=== PATIENT | female | born 1980 | race Caucasian/White ===

== ENCOUNTER 2017-10-11 11:40 | Outpatient (CLI) | payer BC, SELFPAY ==
[2017-10-11 11:55] VITALS: BP 158/98; PULSE 84; RESP 18; TEMP 36.6; O2SAT 97
== END 2017-10-11 12:30 | disposition home or self-care (01) ==
LOC: INF 16:06
PROVIDERS: PCP Family Medicine; Visit Provider Family Medicine
DX: R51 Headache (principal)
CPT/HCPCS: 96372; J2270

== ENCOUNTER → 2017-12-20 08:10 | Outpatient (CLI) | payer OTHER, BC, SELFPAY ==
--- NOTE | 2017-12-20 08:14 | CA_ITS ---
PROCEDURE: 2-D M-mode and color Doppler study INDICATIONS FOR THE TEST: Chest pain X COPD Heart Murmur Tobacco Smoking Palpitations Fatigue Syncope Edema HypertensionXDiabetes Mellitus Rheumatic Fever SOB DOEXObesityXHyperlipidemia Family History HDX Additional History PATIENT INFORMATION HEIGHT: 63 WEIGHT:200 GENDER: Female B/P:154/90 2-D/M-MODE INTERPRETATION: 2-D MEASUREMENTS OBSERVED VALUES IN CMS Right Ventricular Dimension (RVDd) 2.2 Interventricular Septum (Thickness)(IVsd) 1.2 Left Ventricular Internal Dimensions(LVIDd) 4.2 Left Ventricular Posterior Wall (Thickness)(LVPWd) 1.0 Aortic Root 2.8 Aortic Cusp Separation 1.6 Left Atrial Dimensions (LAD) 3.3 2D 1. Left atrium is qualitatively mildly enlarged, left ventricle is normal size, mild concentric left ventricular hypertrophy, visually estimated ejection fraction 55% with no obvious regional wall motion abnormality. 2. The right atrium and right ventricle are normal size and contractility. 3. The aortic valve is minimally thickened and fibrosed. 4. The mitral and tricuspid valve are grossly normal. 5. The pulmonic valve is poorly. 6. No significant pericardial effusion noted. DOPPLER INTERROGATION: Doppler interrogation of the aortic, mitral and tricuspid valvular presence of mild mitral and tricuspid regurgitation, tricuspid and jet velocity insufficient for calculation of the right ventricular systolic pressure, grade 1 diastolic dysfunction seen without tissue Doppler evidence of raised left atrial pressure. CONCLUSION: 1. Mildly enlarged left atrium, normal left ventricular size, mild concentric left ventricular hypertrophy, visually estimated ejection fraction 55% with no obvious regional wall motion abnormality, grade 1 diastolic dysfunction seen without tissue Doppler evidence of raised left atrial pressure. 2. Mild mitral and tricuspid regurgitation. 3. No significant pericardial effusion noted.
--- NOTE | 2017-12-20 09:20 | XR_ITS ---
XR chest 2V HISTORY: ITS.REASON: LUNG NODULE ORDERING PHYSICIAN: FREDDIE Joseph PATIENT AGE: 37 years COMPARISON: 1220 01/19/2016 FINDINGS: The cardiomediastinal silhouette and pulmonary vascularity are within normal limits. The previously noted right apical nodular density is unchanged and is probably related to hypertrophic changes of the right first rib anteriorly versus an underlying calcified granuloma. There is calcified granuloma in the left upper lobe and left lower lobe. The remaining lungs are clear. No acute bony anomalies. IMPRESSION: Stable appearance of the chest. No change right upper lobe nodular opacity
== END ==
PROVIDERS: Family Provider Physician Assistant; PCP Family Medicine; Visit Provider Physician Assistant
DX: R07.9 Chest pain, unspecified (principal); R91.1 Solitary pulmonary nodule
CPT/HCPCS: 71046; 93017; 93306

== ENCOUNTER → 2017-12-23 11:31 | Outpatient (CLI) | payer OTHER, BC, SELFPAY | PROVIDERS: Family Provider Physician Assistant; PCP Family Medicine; Visit Provider Physician Assistant | DX: E03.9 Hypothyroidism, unspecified (principal); R42 Dizziness and giddiness; R07.89 Other chest pain ==

== ENCOUNTER → 2017-12-25 07:00 | Outpatient (CLI) | payer OTHER, BC, SELFPAY ==
[2017-12-26 16:14] LABS: Total Protein 24 Hour,Urine 156 mg/24 hr (40-90); Total Protein,Urine Random < 6.0 mg/dL (0.0-11.9); Total Volume,Urine 2600 mL (600-1600)
== END ==
PROVIDERS: Internal Medicine; Visit Provider Physician Assistant
DX: I11.9 Hypertensive heart disease without heart failure (principal); R07.9 Chest pain, unspecified; R94.31 Abnormal electrocardiogram [ECG] [EKG]
CPT/HCPCS: 84155

== ENCOUNTER → 2017-12-26 08:15 | Outpatient (CLI) | payer OTHER, BC, SELFPAY ==
[2017-12-30 20:10] LABS: Metanephrine, Ur 34 ug/L (Undefined); Normetanephrine, Ur 113 ug/L (Undefined)
[2017-12-31 15:14] LABS: Metanephrine, U,24hr 83 ug/24 hr (45-290); Normetanephr.,U,24h 277 ug/24 hr (82-500)
[2018-01-01 14:16] LABS: VMA, Urine 1.5 mg/L (Undefined)
[2018-01-01 18:26] LABS: Dopamine, Urine 81 ug/L (Undefined); Epinephrine, U, 24hr 5 ug/24 hr (0-20); Epinephrine, Urine 2 ug/L (Undefined); Norepinephrine, Ur 15 ug/L (Undefined); Norepinephrine,U,24h 37 ug/24 hr (0-135)
[2018-01-02 06:30] LABS: Dopamine, Ur, 24hr 198 ug/24 hr (0-510); VMA, Urine, 24hr 3.7 mg/24 hr (0.0-7.5)
== END ==
PROVIDERS: Internal Medicine; Visit Provider Physician Assistant
DX: R07.9 Chest pain, unspecified (principal); R94.31 Abnormal electrocardiogram [ECG] [EKG]; I11.9 Hypertensive heart disease without heart failure
CPT/HCPCS: 83835; 84585

== ENCOUNTER → 2018-01-02 08:06 | Outpatient (CLI) | payer OTHER, BC, SELFPAY ==
--- NOTE | 2018-01-02 08:09 | AS_ITS ---
Renal Arterial Duplex Indications: HTN IMPRESSIONS Normal bilateral renal artery evaluation. Complete renal arterial duplex. Duplex scan and Doppler flow study including spectral analysis, color and wheat scale imaging. Height: Height: 160cm. Height: 63in. Weight: Weight: 90.7kg. Weight: 199.6lb. Body mass index: BMI: 35.4kg/m^2. Body surface area: BSA: 2.05m^2. Location: Vascular laboratory. Patient status: Outpatient. Tables: Arterial flow: + +--------+--------+ Location V sys V ed + +--------+--------+ Right renal - proximal 124cm/s 47.9cm/s + +--------+--------+ Right renal - mid 121cm/s 47.9cm/s + +--------+--------+ Right renal - distal 85.2cm/s 31.2cm/s + +--------+--------+ Left renal - proximal 119cm/s 41.3cm/s + +--------+--------+ Left renal - mid 98.5cm/s 32.8cm/s + +--------+--------+ Left renal - distal 118cm/s 48.9cm/s + +--------+--------+ Renal anatomy: + +------+------+ Left Right + +------+------+ Long axis 10.7cm 10.2cm + +------+------+ Short axis 5.2cm 5.1cm + +------+------+ Cortical thickness 1.1cm 1.4cm + +------+------+ Velocity ratios: + +-----+ V sys + +-----+ Right renal/aortic 1.5 + +-----+ Left renal/aortic 1.5 + +-----+ (Report amended ) Electronically signed by: Lex Okeefe [id number]
== END ==
PROVIDERS: Family Provider Physician Assistant; PCP Family Medicine; Visit Provider Internal Medicine
DX: I10 Essential (primary) hypertension (principal)
CPT/HCPCS: 93976

== ENCOUNTER → 2018-01-02 08:59 | Outpatient (CLI) | payer OTHER, BC, SELFPAY ==
[2018-01-02 11:36] LABS: Anion Gap 12.1 mEq/L (5-15); Blood Urea Nitrogen 13 mg/dL (7-18); Carbon Dioxide 31 mmol/L (21.0-32.0); Chloride 101 mmol/L (98-107); Creatinine,Serum 0.84 mg/dL (0.55-1.02); Estimated Glomerular Filt Rate 76 ml/min (>60); GFR (African American) 92 ML/MIN (>60); Glucose 83 mg/dL (74-106); Potassium 4.1 mmoL/L (3.5-5.1); Sodium 140 mmol/L (136-145)
== END ==
PROVIDERS: Family Provider Physician Assistant; PCP Family Medicine; Visit Provider Physician Assistant
DX: R07.89 Other chest pain (principal); R42 Dizziness and giddiness; E03.9 Hypothyroidism, unspecified; I10 Essential (primary) hypertension; E78.1 Pure hyperglyceridemia; R91.1 Solitary pulmonary nodule; I51.9 Heart disease, unspecified; R94.31 Abnormal electrocardiogram [ECG] [EKG]; E55.9 Vitamin D deficiency, unspecified
CPT/HCPCS: 36415; 80048

== ENCOUNTER → 2018-06-25 09:56 | Outpatient (CLI) | payer OTHER, BC, SELFPAY ==
[2018-06-25 11:38] LABS: Alanine Aminotransferase 30 U/L (12-78); Albumin Level 3.6 gm/dL (3.4-5.0); Albumin/Globulin Ratio 0.9 (1.1-1.8); Alkaline Phosphatase 64 U/L (46-116); Aspartate Amino Transferase 17 U/L (15-37); Bilirubin,Total 0.4 mg/dL (0.2-1.0); Blood Urea Nitrogen 12 mg/dL (7-18); Calcium 8.3 mg/dL (8.5-10.1); Carbon Dioxide 29 mmol/L (21.0-32.0); Chloride 100 mmol/L (98-107); Chol/HDL Ratio 6.1 (1-3.5); Cholesterol 209 mg/dL (140-200); Creatinine,Serum 0.78 mg/dL (0.55-1.02); Estimated Glomerular Filt Rate 83 ml/min (>60); Ferritin 84 ng/mL (8-388); GFR (African American) 100 ML/MIN (>60); Globulin 3.8 gm/dl (1.3-3.2); Glucose 90 mg/dL (74-106); HDL Cholesterol 34 mg/dL (29-89); LDL Cholesterol 135 mg/dL (0-130); Sodium 138 mmol/L (136-145); Thyroid Stimulating Hormone 2.66 uIU/ml (0.358-3.740); Total Protein,Serum 7.4 gm/dL (6.4-8.2); Triglycerides 198 mg/dL (30-200); VLDL Cholesterol 40 mg/dL (0-40)
[2018-06-26 08:27] LABS: Iron 52 ug/dL (27-159); UIBC 303 ug/dL (131-425)
[2018-06-27 09:28] LABS: Iron Saturation 15 % (15-55)
== END ==
PROVIDERS: Visit Provider Physician Assistant
DX: D50.8 Other iron deficiency anemias (principal); E03.9 Hypothyroidism, unspecified; E78.1 Pure hyperglyceridemia; I10 Essential (primary) hypertension
CPT/HCPCS: 36415; 80053; 80061; 82728; 83540; 83550; 84443

== ENCOUNTER → 2018-12-26 08:10 | Outpatient (CLI) | payer OTHER, BC, SELFPAY ==
--- NOTE | 2018-12-26 08:12 | CA_ITS ---
PROCEDURE: 2-D M-mode and color Doppler study INDICATIONS FOR THE TEST: Chest pain COPD Heart Murmur Tobacco Smoking Palpitations+ Fatigue Syncope Edema Hypertension+Diabetes Mellitus Rheumatic Fever SOB+ROTH Obesity+Hyperlipidemia Family History HD Additional History PATIENT INFORMATION HEIGHT: 63 WEIGHT: 201 GENDER: Female B/P: 134/89 2-D/M-MODE INTERPRETATION: 2-D MEASUREMENTS OBSERVED VALUES IN CMS Right Ventricular Dimension (RVDd) 2.5 Interventricular Septum (Thickness)(IVsd) 0.7 Left Ventricular Internal Dimensions(LVIDd) 4.5 Left Ventricular Posterior Wall (Thickness)(LVPWd) 0.7 Aortic Root 2.7 Aortic Cusp Separation 1.9 Left Atrial Dimensions (LAD) 3.5 2D 1. Left atrium is normal size, left ventricle is normal size, there is no concentric left ventricular hypertrophy, visually estimated ejection fraction 55% with no regional wall motion abnormality. 2. The right atrium and right ventricle are mildly enlarged with normal contractility. 3. The aortic, mitral and tricuspid valve are grossly normal. 4. The pulmonic valve is poorly visualized. 5. No significant pericardial effusion noted. DOPPLER INTERROGATION: Doppler interrogation of the aortic, mitral and tricuspid valvular presence of mild mitral and tricuspid regurgitation, tricuspid regurgitation jet velocity is inadequate for calculation of the right ventricular systolic pressure, diastolic parameters are within normal range. CONCLUSION: 1. Normal left ventricular size, preserved left ventricular systolic function, visually estimated ejection fraction 55% with no regional wall motion abnormality, diastolic parameters are within normal range. 2. Mildly enlarged right ventricle with normal contractility. 3. Mild mitral and tricuspid regurgitation 4. No significant pericardial effusion noted.
== END ==
PROVIDERS: PCP Family Medicine; Visit Provider Internal Medicine
DX: I10 Essential (primary) hypertension (principal); E78.1 Pure hyperglyceridemia
CPT/HCPCS: 93306

== ENCOUNTER → 2020-04-19 09:55 | Outpatient (CLI) | payer OTHER, BC, SELFPAY ==
[2020-04-19 10:42] LABS: Glucose,Fasting 108 mg/dl (74-100)
[2020-04-19 12:20] LABS: Glucose 1 Hour 167 mg/dL (74-100)
[2020-04-19 13:30] LABS: Glucose 2 Hour 162 mg/dL (74-100)
== END ==
PROVIDERS: Visit Provider Physician Assistant
DX: R42 Dizziness and giddiness (principal); I10 Essential (primary) hypertension; I51.89 Other ill-defined heart diseases
CPT/HCPCS: 36415; 82951

== ENCOUNTER → 2021-01-12 14:30 | Outpatient (CLI) | payer OTHER, BC, SELFPAY ==
--- NOTE | 2021-01-12 14:37 | XR_ITS ---
PROCEDURE: XR CHEST 2V CLINICAL HISTORY: dyspnea COMPARISON: CR CXR CHEST(2 VIEWS-NOT PORTABLE) from 02/16/2016 CR CXR CHEST(2 VIEWS-NOT PORTABLE) from 08/09/2016 CR CXR2V XR chest 2V from 12/20/2017 FINDINGS: The cardiomediastinal silhouette and pulmonary vascularity are within normal limits. The lungs are clear without infiltrates, suspicious nodules, or pleural effusions. No acute bony abnormalities. IMPRESSION: No acute findings. Dictated by: Lex Okeefe MD 01/12/2021 15:37 Lex Okeefe MD in [place] 01/12/2021 15:37
== END ==
PROVIDERS: PCP Physician Assistant; Visit Provider Internal Medicine Cardiovascular Disease
DX: R06.00 Dyspnea, unspecified (principal); R42 Dizziness and giddiness; R00.2 Palpitations; R60.0 Localized edema; I10 Essential (primary) hypertension; R53.83 Other fatigue; G47.9 Sleep disorder, unspecified; R06.83 Snoring; R40.0 Somnolence
CPT/HCPCS: 71046

== ENCOUNTER → 2021-01-13 09:38 | Outpatient (CLI) | payer OTHER, BC, SELFPAY ==
[2021-01-13 10:25] LABS: Basophils % 0.5 % (0.1-2.0); Eosinophils # 0.2 K/mm3 (0.0-0.4); Eosinophils % 2.3 % (0.1-12.0); Hemoglobin 12.7 g/dL (12.2-16.2); Lymphocytes # 1.4 K/mm3 (0.7-4.5); Lymphocytes % 21.8 % (10-50); Mean Corpuscular HGB Conc 34.4 g/dL (31.8-35.4); Mean Corpuscular Hemoglobin 29.6 pg (27.0-31.2); Mean Corpuscular Volume 86.1 fl (81-99); Mean Platelet Volume 7.3 fl (7.4-10.4); Monocytes # 0.3 K/mm3 (0.1-1.0); Monocytes % 4.9 % (1.7-9.3); Neutrophils # 4.6 K/mm3 (1.8-7.8); Neutrophils % 70.6 % (37.0-80.0); Platelet Count 230 K/mm3 (142-424); Red Cell Distribution Width 14.3 % (11.5-17.5); White Blood Count 6.5 K/mm3 (4.8-10.8)
[2021-01-13 11:03] LABS: Alanine Aminotransferase 36 U/L (12-78); Albumin Level 4.2 g/dl (3.5-5.0); Alkaline Phosphatase 72 U/L (38-126); Aspartate Amino Transferase 29 U/L (14-36); Bilirubin,Direct 0.4 mg/dl (0.0-0.4); Bilirubin,Indirect 0.4 mg/dL (0.0-0.9); Bilirubin,Total 0.8 mg/dl (0.2-1.3); Bilirubin,Unconjugated 0.4 mg/dL (0.0-1.1); Blood Urea Nitrogen 13 mg/dl (7-17); Calcium 8.6 mg/dl (8.4-10.2); Carbon Dioxide 22 mmol/L (22.0-30.0); Chloride 105 mmol/L (98-107); Chol/HDL Ratio 5.9 (1-3.5); Cholesterol 201 mg/dl (140-200); Estimated Glomerular Filt Rate 92 ml/min (>60); GFR (African American) 112 ML/MIN (>60); Glucose 94 mg/dl (74-100); HDL Cholesterol 34 mg/dl (40-60); Sodium 137 mmol/L (136-145); Total Protein,Serum 7.2 g/dl (6.3-8.2); Triglycerides 191 mg/dl (30-150); VLDL Cholesterol 38 mg/dL (0-40)
[2021-01-13 11:14] LABS: Direct LDL Cholesterol 126.13 mg/dL (100-129)
[2021-01-13 11:15] LABS: NT Pro Brain Natriuretic Pep. 208 pg/mL (0-125)
[2021-01-13 11:21] LABS: Free T4 (Free Thyroxine) 1.45 ng/dl (0.78-2.19)
[2021-01-13 11:37] LABS: Thyroid Stimulating Hormone 2.22 uIU/mL (0.465-4.68)
[2021-01-13 15:45] LABS: Hemoglobin A1C 5.5 % (4.0-6.0)
== END ==
PROVIDERS: Visit Provider Internal Medicine Cardiovascular Disease
DX: R06.00 Dyspnea, unspecified (principal); R42 Dizziness and giddiness; R00.2 Palpitations; R60.0 Localized edema; I10 Essential (primary) hypertension; R63.5 Abnormal weight gain
CPT/HCPCS: 36415; 80048; 80061; 80076; 83036; 83880; 84439; 84443; 85025

== ENCOUNTER → 2021-01-25 13:36 | Outpatient (CLI) | payer OTHER, BC, SELFPAY | PROVIDERS: PCP Physician Assistant; Visit Provider Physician Assistant | DX: R06.00 Dyspnea, unspecified (principal); R00.2 Palpitations; R42 Dizziness and giddiness; R60.0 Localized edema; R94.31 Abnormal electrocardiogram [ECG] [EKG]; I10 Essential (primary) hypertension; G47.9 Sleep disorder, unspecified; R06.83 Snoring; R40.0 Somnolence; R53.83 Other fatigue | CPT/HCPCS: 93306 ==

== ENCOUNTER → 2021-01-31 11:15 | Outpatient (CLI) | payer OTHER, BC, SELFPAY | PROVIDERS: PCP Physician Assistant; Visit Provider Internal Medicine Cardiovascular Disease | DX: G47.33 Obstructive sleep apnea (adult) (pediatric) (principal); I10 Essential (primary) hypertension; R06.00 Dyspnea, unspecified; R06.83 Snoring; R40.0 Somnolence; R00.2 Palpitations; R42 Dizziness and giddiness; R53.83 Other fatigue; R60.0 Localized edema | CPT/HCPCS: G0399 ==

== ENCOUNTER → 2021-02-27 11:28 | Outpatient (CLI) | payer OTHER, BC, SELFPAY ==
[2021-02-27 12:29] LABS: Chloride 105 mmol/L (98-107); Potassium 4.3 mmoL/L (3.5-5.1); Sodium 139 mmol/L (136-145)
[2021-02-27 12:32] LABS: Anion Gap 15.3 mEq/L (5-15); Blood Urea Nitrogen 14 mg/dl (7-17); Calcium 8.7 mg/dl (8.4-10.2); Carbon Dioxide 23 mmol/L (22.0-30.0); Estimated Glomerular Filt Rate 92 ml/min (>60); GFR (African American) 112 ML/MIN (>60); Glucose 87 mg/dl (74-100)
[2021-02-27 12:33] LABS: Magnesium 2.1 mg/dl (1.6-2.3)
== END ==
PROVIDERS: Visit Provider Urology
DX: I10 Essential (primary) hypertension (principal); G47.33 Obstructive sleep apnea (adult) (pediatric); R06.83 Snoring; R60.0 Localized edema
CPT/HCPCS: 36415; 80048; 83735

== ENCOUNTER → 2021-04-03 10:59 | Outpatient (CLI) | payer OTHER, BC, SELFPAY ==
[2021-04-03 11:23] LABS: Basophils # 0.1 K/mm3 (0-0.2); Basophils % 0.8 % (0.1-2.0); Eosinophils # 0.2 K/mm3 (0.0-0.4); Hematocrit 39.8 % (37.0-47.0); Hemoglobin 13.6 g/dL (12.2-16.2); Lymphocytes # 1.7 K/mm3 (0.7-4.5); Lymphocytes % 21.9 % (10-50); Mean Corpuscular HGB Conc 34.1 g/dL (31.8-35.4); Mean Corpuscular Hemoglobin 29.4 pg (27.0-31.2); Mean Corpuscular Volume 86.1 fl (81-99); Mean Platelet Volume 7.1 fl (7.4-10.4); Monocytes # 0.4 K/mm3 (0.1-1.0); Monocytes % 4.9 % (1.7-9.3); Neutrophils # 5.4 K/mm3 (1.8-7.8); Neutrophils % 69.5 % (37.0-80.0); Platelet Count 308 K/mm3 (142-424); Red Blood Count 4.62 M/mm3 (4.20-5.40); Red Cell Distribution Width 14.4 % (11.5-17.5); White Blood Count 7.8 K/mm3 (4.8-10.8)
[2021-04-03 14:26] LABS: Free T4 (Free Thyroxine) 1.43 ng/dl (0.78-2.19)
[2021-04-03 14:41] LABS: Thyroid Stimulating Hormone 3.09 uIU/mL (0.465-4.68)
[2021-04-03 15:16] LABS: Vitamin B12 529 pg/mL (239-931)
[2021-04-03 15:33] LABS: Iron 75 ug/dL (37-170)
[2021-04-03 15:42] LABS: Total Iron Binding Capacity 410 ug/dL (265-497)
== END ==
PROVIDERS: Visit Provider Nurse Practitioner Family
DX: E03.9 Hypothyroidism, unspecified (principal)
CPT/HCPCS: 36415; 82607; 82746; 83540; 83550; 84439; 84443; 85025

== ENCOUNTER → 2021-04-26 13:21 | Outpatient (CLI) | payer OTHER, BC, SELFPAY ==
[2021-04-26 14:25] LABS: Basophils # 0.1 K/mm3 (0-0.2); Basophils % 0.7 % (0.1-2.0); Eosinophils # 0.2 K/mm3 (0.0-0.4); Eosinophils % 2.5 % (0.1-12.0); Hematocrit 40.6 % (37.0-47.0); Hemoglobin 13.5 g/dL (12.2-16.2); Lymphocytes % 24.4 % (10-50); Mean Corpuscular HGB Conc 33.3 g/dL (31.8-35.4); Mean Corpuscular Volume 90.1 fl (81-99); Mean Platelet Volume 7.7 fl (7.4-10.4); Monocytes # 0.6 K/mm3 (0.1-1.0); Monocytes % 6.7 % (1.7-9.3); Neutrophils # 5.5 K/mm3 (1.8-7.8); Neutrophils % 65.8 % (37.0-80.0); Platelet Count 300 K/mm3 (142-424); Red Blood Count 4.51 M/mm3 (4.20-5.40); Red Cell Distribution Width 14.2 % (11.5-17.5); White Blood Count 8.4 K/mm3 (4.8-10.8)
[2021-04-26 17:00] LABS: Strep Scrn Group A (Rapid) Negative (Negative)
== END ==
PROVIDERS: PCP Physician Assistant; Visit Provider Physician Assistant
DX: Z20.822 Contact with and (suspected) exposure to COVID-19 (principal)
CPT/HCPCS: 85025; 87430; U0003

== ENCOUNTER → 2021-06-30 11:56 | Outpatient (CLI) | payer OTHER, BC, SELFPAY | PROVIDERS: PCP Physician Assistant; Visit Provider Physician Assistant | DX: Z20.822 Contact with and (suspected) exposure to COVID-19 (principal) | CPT/HCPCS: C9803; U0003; U0005 ==

== ENCOUNTER → 2021-07-03 12:35 | Outpatient (CLI) | payer OTHER, BC, SELFPAY | PROVIDERS: PCP Family Medicine; Visit Provider Physician Assistant | DX: Z20.822 Contact with and (suspected) exposure to COVID-19 (principal) | CPT/HCPCS: C9803; U0003; U0005 ==

== ENCOUNTER → 2022-02-27 14:53 | Outpatient (CLI) | payer OTHER, BC, SELFPAY ==
[2022-02-27 17:42] LABS: Chloride 102 mmol/L (98-107); Potassium 3.9 mmoL/L (3.5-5.1); Sodium 138 mmol/L (136-145)
[2022-02-27 17:45] LABS: Anion Gap 12.9 mEq/L (5-15); Blood Urea Nitrogen 12 mg/dl (7-17); Calcium 8.8 mg/dl (8.4-10.2); Carbon Dioxide 27 mmol/L (22.0-30.0); Estimated Glomerular Filt Rate 79 ml/min (>60); GFR (African American) 95 ML/MIN (>60); Glucose 100 mg/dl (74-100); Magnesium 1.8 mg/dl (1.6-2.3)
== END ==
PROVIDERS: PCP Physician Assistant; Visit Provider Nurse Practitioner Family
DX: R42 Dizziness and giddiness (principal); R60.0 Localized edema; R53.83 Other fatigue; G47.33 Obstructive sleep apnea (adult) (pediatric); R40.0 Somnolence
CPT/HCPCS: 36415; 80048; 83735

== ENCOUNTER → 2022-12-08 09:57 | Outpatient (CLI) | payer OTHER, BC, SELFPAY ==
--- NOTE | 2022-12-08 10:25 | XR_ITS ---
PROCEDURE INFORMATION: Exam: XR Cervical Spine Exam date and time: 12/08/2022 10:26 AM Age: 42 years old Clinical indication: Neck pain; Additional info: Back and neck pain TECHNIQUE: Imaging protocol: Radiologic exam of the cervical spine. Views: 2 or 3 views. COMPARISON: None FINDINGS: Bones/joints: Loss of and reversal of the cervical lordotic curvature. Crockett of the reversal present at C4-C5. Cervical spondylosis with mild changes of disc degeneration most pronounced at C5-C6 and C6-C7. Soft tissues: Unremarkable. IMPRESSION: Cervical spondylosis with mild changes of disc degeneration most pronounced at C5-C6 and C6-C7.
--- NOTE | 2022-12-08 10:25 | XR_ITS ---
PROCEDURE INFORMATION: Exam: XR Lumbosacral Spine Exam date and time: 12/08/2022 10:26 AM Age: 42 years old Clinical indication: Low back pain; Additional info: Low back and neck pain TECHNIQUE: Imaging protocol: Radiologic exam of the lumbosacral spine. Views: 2 or 3 views. COMPARISON: MOTTLER OPERATOR/O MRI-L-SPINE W/O 12/05/2016 11:43 AM FINDINGS: Bones/joints: Loss of the lumbar lordotic curvature. Multilevel disc degeneration most pronounced at L2-L3 and L3-L4. Lumbar spondylosis with posterior osteophytic ridge formation most pronounced at L3-L4. Soft tissues: Unremarkable. IMPRESSION: Lumbar spondylosis with multilevel disc degeneration most pronounced at L2-L3 and L3-L4.
[2022-12-08 11:22] LABS: Alanine Aminotransferase 28 U/L (12-78); Albumin Level 3.8 g/dl (3.5-5.0); Albumin/Globulin Ratio 1.4 (1.1-1.8); Alkaline Phosphatase 63 U/L (38-126); Anion Gap 13.2 mEq/L (5-15); Aspartate Amino Transferase 20 U/L (14-36); Bilirubin,Total 0.6 mg/dl (0.2-1.3); Blood Urea Nitrogen 17 mg/dl (7-17); Carbon Dioxide 25 mmol/L (22.0-30.0); Chloride 105 mmol/L (98-107); Chol/HDL Ratio 4.3 (1-3.5); Cholesterol 145 mg/dl (140-200); Estimated Glomerular Filt Rate 78 ml/min (>60); GFR (African American) 95 ML/MIN (>60); Globulin 2.8 g/dL (1.3-3.2); Glucose 94 mg/dl (74-100); HDL Cholesterol 34 mg/dl (40-60); Potassium 4.2 mmoL/L (3.5-5.1); Sodium 139 mmol/L (136-145); Total Protein,Serum 6.6 g/dl (6.3-8.2); Triglycerides 244 mg/dl (30-150); VLDL Cholesterol 49 mg/dL (0-40)
[2022-12-08 11:32] LABS: NT Pro Brain Natriuretic Pep. 457 pg/mL (0-125)
[2022-12-08 11:33] LABS: Direct LDL Cholesterol 83.86 mg/dL (100-129)
[2022-12-08 11:40] LABS: 25-OH Vitamin D, Total 40.7 ng/mL (30-100); Free T4 (Free Thyroxine) 1.53 ng/dl (0.78-2.19)
[2022-12-08 11:53] LABS: Thyroid Stimulating Hormone 0.88 uIU/mL (0.465-4.68)
[2022-12-08 12:25] LABS: Iron 105 ug/dL (37-170)
[2022-12-08 12:34] LABS: Total Iron Binding Capacity 333 ug/dL (265-497)
[2022-12-08 13:01] LABS: Ferritin 21.5 ng/ml (6.24-137)
== END ==
PROVIDERS: PCP Physician Assistant; Visit Provider Physician Assistant
DX: E03.9 Hypothyroidism, unspecified (principal); E78.1 Pure hyperglyceridemia; D50.8 Other iron deficiency anemias; I10 Essential (primary) hypertension; E55.9 Vitamin D deficiency, unspecified; I51.89 Other ill-defined heart diseases; M54.2 Cervicalgia; M54.50 Low back pain, unspecified
CPT/HCPCS: 36415; 72040; 72100; 80053; 80061; 82306; 82728; 83540; 83550; 83880; 84439; 84443

== ENCOUNTER → 2022-12-24 07:56 | Outpatient (CLI) | payer OTHER, BC, SELFPAY ==
--- NOTE | 2022-12-24 07:58 | MR_ITS ---
FINAL REPORT TECHNIQUE: Multiplanar MR without contrast CLINICAL HISTORY: ACUTE MIDLINE LOW BACK PAIN, NECK PAIN. NECK PAIN WITH POPPING. INTERMITTENT RIGHT ARM PAIN, NUMBNESS, AND TINGLING FINDINGS: Limited images of the posterior fossa are unremarkable. Alignment is normal. Cervical spinal cord shows normal signal and contour. C2-3: Unremarkable C3-4: Mild annular disc bulge. C4-5: Mild annular disc bulge. C5-6: Moderate annular disc bulge with mild contact on the spinal cord. Borderline canal stenosis. C6-7: Mild to moderate annular disc bulge with partially covering osteophytes. Borderline canal stenosis. Mild bilateral neural foraminal narrowing, left greater than right. C7-T1: Unremarkable IMPRESSION: Mild degenerative disc disease. Reviewed, Interpreted and Dictated by Wilmer Coombs MD Transcribed by Mark Holt Authenticated and [facility]
--- NOTE | 2022-12-24 07:58 | MR_ITS ---
FINAL REPORT TECHNIQUE: Multiplanar MR without gadolinium enhancement CLINICAL HISTORY: ACUTE MIDLINE LOW BACK PAIN, NECK PAIN. BILATERAL LOW BACK PAIN. LEFT LEG PAIN, NUMBNESS AND TINGLING. FINDINGS: Sagittal images show normal vertebral height. Alignment is normal. Marrow signal pattern is unremarkable. T11-T12: Mild annular disc bulge. T12-L1: Unremarkable L1-2: Moderate sized left paracentral disc protrusion with an annular tear compressing the left thecal sac and left L2 nerve root. L2-3: Moderate annular disc bulge asymmetric to the left with borderline canal stenosis. L3-4: Moderate annular disc bulge with mild canal stenosis. L4-5: Moderate annular disc bulge with mild canal stenosis. L5-S1: A minimal annular disc bulge with moderate left facet arthropathy. No canal stenosis or nerve root compression. IMPRESSION: Significant left-sided disc protrusion at L1-2 causes left sided canal stenosis and probable left L2 nerve compression. Degenerative canal stenosis relating to disc disease as above at L2-3, L3-4, and L4-5. Reviewed, Interpreted and Dictated by Wilmer Coombs MD Transcribed by Sandra Vaughan Authenticated and [facility]
== END ==
PROVIDERS: PCP Physician Assistant; Visit Provider Physician Assistant
DX: M54.2 Cervicalgia (principal); M54.50 Low back pain, unspecified
CPT/HCPCS: 72141; 72148; 76376

== ENCOUNTER → 2023-01-11 12:25 | Outpatient (CLI) | payer OTHER, BC, SELFPAY ==
--- NOTE | 2023-01-11 12:28 | NM_ITS ---
APPROVED REPORT Exam: Nuclear Stress Test Indication: chest pain..soa..palpitations..fatigue..hypertension..family hx Patient Location: Outpatient Stress Tech: Rossy Cheatham ND Tech:Ursula Mcqueen, ARRT RT(R)(N) Ht: 5 ft 3 in Wt: 220 lbs Bra Size: 38dd HR: 69 bpm BP: 158/95 mmHg BSA: 2.01 m2 Rhythm: NSR TID: 1.21 BMI: 38.9 History: chest pain..soa..palpitations..fatigue..hypertension..family hx Procedure: Patient received 0.4 mg of intravenous Lexiscan, resting heart rate 69 bpm, resting blood pressure 158/95 mmHg, with Lexiscan maximum heart rate achieved was 108 bpm which is 61 % of the maximum predicted heart rate and blood pressure was 158/95 mmHg. With Lexiscan, patient denied any complaint of chest pain. Cardiac Stress and Resting SPECT Images: Cardiac Stress and Resting SPECT images were obtained using technetium 99m Myoview 32.7 mCi stress and 10.10 mCi at rest. Resting and stress imaging in both supine and prone positions demonstrate no fixed or reversible perfusion defects. There was borderline increased transient ischemic dilatation ratio (TID=1.21). This may be suggestive of possible underlying balanced ischemia or multivessel disease. Gated imaging demonstrates hyperdynamic LV global and regional systolic function. LVEF is calculated at > 75%. Conclusion: No fixed or reversible perfusion defects. Borderline increased transient ischemic dilatation ratio (TID=1.21). This may be suggestive of possible underlying balanced ischemia or multivessel disease. Gated imaging demonstrates hyperdynamic LV global and regional systolic function. LVEF is calculated at > 75%. Electronically signed by : Precious Myers, 01/13/2023 21:26:09
--- NOTE | 2023-01-11 13:58 | CA_ITS ---
APPROVED REPORT Exam: Pharmacologic Technologist: Rossy Leon, Ht: 5 ft 3 in Wt: 220 lbs BSA: 2.01 m2 HR: 76 bpm BP: 158/95 mmHg Medical History Medications: Omeprazole,,,,, Levothyroxine,,,,, Losartan,,,,, Atorvastatin,,,,, SpirOLACTONE,,,,, Montelukast,,,,, FluTICASONE,,,,, Vitamin D2,,,,, CetIRIZINE,,,,, Furosemide,,,,, Ferrous GLUCONATE,,,,, Propranolol ER,,,,, Stress Test Details Test: LEXISCAN Reason for pharmacologic stress test: physical limitation. HR Resting HR: 69 bpm Max Heart Rate (APMHR): 177 bpm Max HR Achieved: 108 bpm Target HR (85% APMHR): 150 bpm % of APMHR: 61 Recovery HR: 92 bpm BP Resting BP: 158.0/95.0 mmHg Max BP: 158.0/95.0 mmHg Recovery BP: 123.0/79.0 mmHg ECG Resting ECG: NSR, < [address] ST-depression in inferolateral leads Clinical Exercise duration: 04:00 min Highest Stage Achieved: Exercise capacity: 1.0 METs Stress ECG Conclusion Symptoms: SOA, nausea Arrhythmias/Ectopy: occasional PVC in recovery Baseline ECG: Normal sinus rhythm, ST-depression < 1mm in the inferolateral royal ST-T Changes: No change Conclusion: The patient switched from exercise to pharmacologic stress testing due to anxiety and SOA. Baseline ECG demonstrated normal sinus rhythm, ST-depression < 1mm in the inferolateral royal. Stress ECG is non-diagnostic due to baseline ST-abnormalities. Myoview images are reported separately. Test Summary REST . . . . . . . Resting REST 00:42 . . 69 . 158/ 95 . . Stage 1 . . . . . . . Myoview Injected Stage 1 01:00 . . 100 . . . . Stage 2 01:00 . . 106 . 143/ 89 . . Stage 3 01:00 . . 107 . 144/ 99 . . Stage 4 01:00 . . 101 . 130/ 86 . Stop exercise at 04:00 RECOVERY 01:00 . . 101 . 138/ 89 . . RECOVERY 02:00 . . 96 . 131/ 92 . . RECOVERY 03:00 . . 99 . 131/ 92 . . RECOVERY 04:00 . . 92 . 123/ 79 . . RECOVERY 04:07 . . 93 . 123/ 79 . . Electronically signed by : Precious Myers, 01/13/2023 21:21:26
== END ==
PROVIDERS: PCP Physician Assistant; Visit Provider Nurse Practitioner
DX: R06.02 Shortness of breath (principal); R07.89 Other chest pain; E55.9 Vitamin D deficiency, unspecified; I10 Essential (primary) hypertension; E78.2 Mixed hyperlipidemia; G47.33 Obstructive sleep apnea (adult) (pediatric)
CPT/HCPCS: 78452; 93017; 93306; A9502; J2785

== ENCOUNTER 2023-02-06 08:19 | Day surgery (SDC) | payer OTHER, BC, SELFPAY ==
[2023-02-06] VITALS (12 sets, daily range): BP systolic 110–186; BP diastolic 74–106; PULSE 66–81; RESP 18–19; O2SAT 89–100; BMI 38.4
--- NOTE | 2023-02-06 07:11 | IR_ITS ---
APPROVED REPORT Patient Location: Outpatient Concert Singer: KELLI Armstrong RT (R) PROCEDURES Left heart catheterization Left ventriculogram Selective coronary angiogram INDICATION Abnormal Myoview, Angina pectoris Informed consent was obtained prior to the procedure. COMPLICATIONS None Estimated Blood Loss: Less than 10 mls TECHNIQUE One percent lidocaine used to anesthetize the right anterior aspect of the wrist. The right radial artery was accessed via the Seldinger technique. A 6 Swedish sheath was placed in the right radial artery. 150 mg magnesium sulfate, 800 mcg of nitroglycerin, 1mg Lidocaine and 5000 U Heparin were given through the arterial sheath. The papa catheter was also used to perform left heart catheterization, left ventriculogram and selective coronary angiogram. At the end of the procedure the sheath was removed good hemostasis was achieved using Traclet band, patient was transferred to the postop holding area in stable condition. ANGIOGRAPHIC RESULTS The left main artery Normal The left anterior descending artery Normal The circumflex artery Normal The right coronary artery Dominant normal The HER[place] ventriculogram reveals Hyperdynamic 70 to 75% The left ventricular end-diastolic pressure 25 mmHg IMPRESSION Normal coronary arteries Hyperdynamic ventricle with elevated LVEDP consistent with diastolic dysfunction PLAN 1. Treatment of diastolic dysfunction 2. Consider sleep study based on diastolic dysfunction 3. Lasix 40 mg daily combined with spironolactone 50 mg daily Electronically signed by : Tadeo Medina MD 02/06/2023 10:21:08
[2023-02-06 09:00] LABS: Basophils % 0.4 % (0.1-2.0); Eosinophils # 0.2 K/mm3 (0.0-0.4); Hematocrit 40.4 % (37.0-47.0); Hemoglobin 13.6 g/dL (12.2-16.2); Lymphocytes # 1.6 K/mm3 (0.7-4.5); Lymphocytes % 22.1 % (10-50); Mean Corpuscular HGB Conc 33.7 g/dL (31.8-35.4); Mean Corpuscular Hemoglobin 28.8 pg (27.0-31.2); Mean Corpuscular Volume 85.5 fl (81-99); Mean Platelet Volume 7.8 fl (7.4-10.4); Monocytes # 0.4 K/mm3 (0.1-1.0); Monocytes % 5.4 % (1.7-9.3); Neutrophils # 5.1 K/mm3 (1.8-7.8); Neutrophils % 69.1 % (37.0-80.0); Platelet Count 317 K/mm3 (142-424); Red Blood Count 4.73 M/mm3 (4.20-5.40); White Blood Count 7.3 K/mm3 (4.8-10.8)
[2023-02-06 09:16] LABS: Anion Gap 18.1 mEq/L (5-15); Blood Urea Nitrogen 18 mg/dl (7-17); Calcium 9.1 mg/dl (8.4-10.2); Carbon Dioxide 26 mmol/L (22.0-30.0); Chloride 99 mmol/L (98-107); Creatinine Clearance Estimated 141 mL/min (50-200); Estimated Glomerular Filt Rate 78 ml/min (>60); GFR (African American) 95 ML/MIN (>60); Glucose 105 mg/dl (74-100); Potassium 4.1 mmoL/L (3.5-5.1); Sodium 139 mmol/L (136-145)
[2023-02-06 09:21] LABS: HCG Qualitative, Serum Negative (Negative)
[2023-02-06 09:24] LABS: INR 0.96 (0.9-1.1); Prothrombin Time 10.4 seconds (10.1-12.5)
== END 2023-02-06 13:43 | disposition home or self-care (01) ==
PROVIDERS: PCP Physician Assistant; Visit Provider Internal Medicine
DX: I20.9 Angina pectoris, unspecified (principal); E78.2 Mixed hyperlipidemia; I10 Essential (primary) hypertension; G47.33 Obstructive sleep apnea (adult) (pediatric); R94.31 Abnormal electrocardiogram [ECG] [EKG]
CPT/HCPCS: 80048; 84703; 85025; 85610; 93458; 99152; C1725; C1769; J1644; Q9967

== ENCOUNTER → 2023-02-15 11:50 | Outpatient (CLI) | payer OTHER, BC, SELFPAY ==
[2023-02-15 12:07] LABS: Basophils % 0.3 % (0.1-2.0); Eosinophils # 0.3 K/mm3 (0.0-0.4); Eosinophils % 3.3 % (0.1-12.0); Hematocrit 41.7 % (37.0-47.0); Hemoglobin 13.4 g/dL (12.2-16.2); Lymphocytes % 20.5 % (10-50); Mean Corpuscular HGB Conc 32.1 g/dL (31.8-35.4); Mean Corpuscular Hemoglobin 28.6 pg (27.0-31.2); Mean Corpuscular Volume 89.1 fl (81-99); Mean Platelet Volume 8.3 fl (7.4-10.4); Monocytes # 0.5 K/mm3 (0.1-1.0); Monocytes % 5.4 % (1.7-9.3); Neutrophils # 6.8 K/mm3 (1.8-7.8); Neutrophils % 70.5 % (37.0-80.0); Platelet Count 309 K/mm3 (142-424); Red Blood Count 4.68 M/mm3 (4.20-5.40); White Blood Count 9.7 K/mm3 (4.8-10.8)
[2023-02-15 13:01] LABS: Blood Urea Nitrogen 11 mg/dl (7-17); Calcium 8.9 mg/dl (8.4-10.2); Carbon Dioxide 24 mmol/L (22.0-30.0); Chloride 100 mmol/L (98-107); Estimated Glomerular Filt Rate 91 ml/min (>60); GFR (African American) 111 ML/MIN (>60); Glucose 88 mg/dl (74-100); Sodium 139 mmol/L (136-145)
[2023-02-15 14:23] LABS: Hemoglobin A1C 5.8 % (4.0-6.0)
== END ==
PROVIDERS: PCP Physician Assistant; Visit Provider Nurse Practitioner
DX: I10 Essential (primary) hypertension (principal); R73.03 Prediabetes; E78.5 Hyperlipidemia, unspecified; R94.31 Abnormal electrocardiogram [ECG] [EKG]; G47.33 Obstructive sleep apnea (adult) (pediatric); I63.9 Cerebral infarction, unspecified
CPT/HCPCS: 36415; 80048; 83036; 85025

== ENCOUNTER → 2023-05-15 15:37 | Outpatient (CLI) | payer BC, SELFPAY ==
[2023-05-15 16:59] LABS: Chloride 102 mmol/L (98-107); Sodium 139 mmol/L (136-145)
[2023-05-15 17:00] LABS: Potassium 4.2 mmoL/L (3.5-5.1)
[2023-05-15 17:02] LABS: Blood Urea Nitrogen 13 mg/dl (7-17); Estimated Glomerular Filt Rate 68 ml/min (>60); GFR (African American) 83 ML/MIN (>60)
[2023-05-15 17:03] LABS: Anion Gap 11.2 mEq/L (5-15); Calcium 8.5 mg/dl (8.4-10.2); Carbon Dioxide 30 mmol/L (22.0-30.0); Glucose 84 mg/dl (74-100)
== END ==
PROVIDERS: PCP Physician Assistant; Visit Provider Internal Medicine
DX: R06.00 Dyspnea, unspecified; I11.9 Hypertensive heart disease without heart failure
CPT/HCPCS: 36415; 80048

== ENCOUNTER → 2023-07-15 12:05 | Outpatient (CLI) | payer BC, SELFPAY ==
[2023-07-15 12:56] LABS: Basophils # 0.1 K/mm3 (0-0.2); Eosinophils # 0.3 K/mm3 (0.0-0.4); Eosinophils % 3.6 % (0.1-12.0); Hematocrit 41.4 % (37.0-47.0); Hemoglobin 14.1 g/dL (12.2-16.2); Lymphocytes # 2.2 K/mm3 (0.7-4.5); Lymphocytes % 26.8 % (10-50); Mean Corpuscular HGB Conc 34.1 g/dL (31.8-35.4); Mean Corpuscular Hemoglobin 30.2 pg (27.0-31.2); Mean Corpuscular Volume 88.7 fl (81-99); Mean Platelet Volume 7.6 fl (7.4-10.4); Monocytes # 0.4 K/mm3 (0.1-1.0); Monocytes % 5.2 % (1.7-9.3); Neutrophils # 5.1 K/mm3 (1.8-7.8); Neutrophils % 63.4 % (37.0-80.0); Platelet Count 276 K/mm3 (142-424); Red Blood Count 4.67 M/mm3 (4.20-5.40); Red Cell Distribution Width 14.1 % (11.5-17.5); White Blood Count 8.1 K/mm3 (4.8-10.8)
[2023-07-15 13:35] LABS: Alanine Aminotransferase 33 U/L (12-78); Albumin Level 4.5 g/dl (3.5-5.0); Alkaline Phosphatase 82 U/L (38-126); Anion Gap 13.9 mEq/L (5-15); Aspartate Amino Transferase 32 U/L (14-36); Bilirubin,Indirect 0.5 mg/dL (0.0-0.9); Bilirubin,Total 0.5 mg/dl (0.2-1.3); Bilirubin,Unconjugated 0.5 mg/dL (0.0-1.1); Blood Urea Nitrogen 12 mg/dl (7-17); Calcium 8.2 mg/dl (8.4-10.2); Carbon Dioxide 26 mmol/L (22.0-30.0); Chloride 99 mmol/L (98-107); Chol/HDL Ratio 6.5 (1-3.5); Cholesterol 196 mg/dl (140-200); Estimated Glomerular Filt Rate 68 ml/min (>60); GFR (African American) 83 ML/MIN (>60); Glucose 88 mg/dl (74-100); HDL Cholesterol 30 mg/dl (40-60); Magnesium 2.2 mg/dl (1.6-2.3); Potassium 3.9 mmoL/L (3.5-5.1); Sodium 135 mmol/L (136-145); Total Protein,Serum 7.8 g/dl (6.3-8.2); Triglycerides 270 mg/dl (30-150); VLDL Cholesterol 54 mg/dL (0-40)
[2023-07-15 13:46] LABS: Direct LDL Cholesterol 114.04 mg/dL (100-129)
[2023-07-15 13:49] LABS: Free T4 (Free Thyroxine) 1.29 ng/dl (0.78-2.19)
[2023-07-15 14:05] LABS: Thyroid Stimulating Hormone 2.27 uIU/mL (0.465-4.68)
== END ==
PROVIDERS: PCP Physician Assistant; Visit Provider Internal Medicine
DX: E78.5 Hyperlipidemia, unspecified (principal); E78.1 Pure hyperglyceridemia; R73.03 Prediabetes; I11.0 Hypertensive heart disease with heart failure; I50.30 Unspecified diastolic (congestive) heart failure; R06.00 Dyspnea, unspecified; R60.0 Localized edema; R94.31 Abnormal electrocardiogram [ECG] [EKG]; G47.33 Obstructive sleep apnea (adult) (pediatric)
CPT/HCPCS: 80048; 80061; 80076; 83735; 84439; 84443; 85025

== ENCOUNTER → 2023-08-06 08:09 | Outpatient (CLI) | payer BC, SELFPAY ==
[2023-08-06 08:59] LABS: Basophils % 0.1 % (0.1-2.0); Eosinophils # 0.2 K/mm3 (0.0-0.4); Hematocrit 38.2 % (37.0-47.0); Hemoglobin 13.1 g/dL (12.2-16.2); Lymphocytes # 1.7 K/mm3 (0.7-4.5); Mean Corpuscular HGB Conc 34.2 g/dL (31.8-35.4); Mean Corpuscular Volume 87.8 fl (81-99); Monocytes # 0.5 K/mm3 (0.1-1.0); Neutrophils # 6.8 K/mm3 (1.8-7.8); Neutrophils % 73.9 % (37.0-80.0); Platelet Count 242 K/mm3 (142-424); Red Blood Count 4.35 M/mm3 (4.20-5.40); Red Cell Distribution Width 13.9 % (11.5-17.5); White Blood Count 9.1 K/mm3 (4.8-10.8)
[2023-08-06 09:02] LABS: Chloride 99 mmol/L (98-107); Potassium 3.7 mmoL/L (3.5-5.1); Sodium 136 mmol/L (136-145)
[2023-08-06 09:04] LABS: Blood Urea Nitrogen 14 mg/dl (7-17); Estimated Glomerular Filt Rate 78 ml/min (>60); GFR (African American) 94 ML/MIN (>60)
[2023-08-06 09:05] LABS: Alanine Aminotransferase 27 U/L (12-78); Albumin Level 4.1 g/dl (3.5-5.0); Albumin/Globulin Ratio 1.5 (1.1-1.8); Alkaline Phosphatase 74 U/L (38-126); Anion Gap 12.7 mEq/L (5-15); Aspartate Amino Transferase 25 U/L (14-36); Bilirubin,Total 0.5 mg/dl (0.2-1.3); Calcium 8.5 mg/dl (8.4-10.2); Carbon Dioxide 28 mmol/L (22.0-30.0); Cholesterol 135 mg/dl (140-200); Globulin 2.7 g/dL (1.3-3.2); Glucose 98 mg/dl (74-100); Total Protein,Serum 6.8 g/dl (6.3-8.2); Triglycerides 205 mg/dl (30-150); VLDL Cholesterol 41 mg/dL (0-40)
[2023-08-06 09:06] LABS: HDL Cholesterol 27 mg/dl (40-60)
[2023-08-06 09:16] LABS: Direct LDL Cholesterol 80.78 mg/dL (100-129)
[2023-08-06 09:22] LABS: 25-OH Vitamin D, Total 55.6 ng/mL (30-100); Free T4 (Free Thyroxine) 1.25 ng/dl (0.78-2.19)
== END ==
PROVIDERS: Family Medicine; PCP Physician Assistant; Visit Provider Internal Medicine
DX: E78.1 Pure hyperglyceridemia (principal); I10 Essential (primary) hypertension; E55.9 Vitamin D deficiency, unspecified; E03.9 Hypothyroidism, unspecified; Z68.35 Body mass index [BMI] 35.0-35.9, adult
CPT/HCPCS: 36415; 80053; 80061; 82306; 84439; 85025

== ENCOUNTER 2024-01-22 10:19 | Outpatient (CLI) | payer BC, SELFPAY ==
[2024-01-22 11:00] LABS: Basophils # 0.1 K/mm3 (0-0.2); Eosinophils # 0.3 K/mm3 (0.0-0.4); Eosinophils % 2.8 % (0.1-12.0); Hematocrit 44.4 % (37.0-47.0); Hemoglobin 14.5 g/dL (12.2-16.2); Lymphocytes # 1.8 K/mm3 (0.7-4.5); Lymphocytes % 18.1 % (10-50); Mean Corpuscular HGB Conc 32.6 g/dL (31.8-35.4); Mean Corpuscular Hemoglobin 29.8 pg (27.0-31.2); Mean Corpuscular Volume 91.4 fl (81-99); Mean Platelet Volume 7.9 fl (7.4-10.4); Monocytes # 0.4 K/mm3 (0.1-1.0); Monocytes % 4.5 % (1.7-9.3); Neutrophils # 7.2 K/mm3 (1.8-7.8); Neutrophils % 73.6 % (37.0-80.0); Platelet Count 270 K/mm3 (142-424); Red Blood Count 4.85 M/mm3 (4.20-5.40); Red Cell Distribution Width 14.7 % (11.5-17.5); White Blood Count 9.7 K/mm3 (4.8-10.8)
[2024-01-22 11:51] LABS: Chloride 102 mmol/L (98-107); Sodium 137 mmol/L (136-145)
[2024-01-22 11:53] LABS: Blood Urea Nitrogen 13 mg/dl (7-17); Estimated Glomerular Filt Rate 78 ml/min (>60); GFR (African American) 94 ML/MIN (>60)
[2024-01-22 11:54] LABS: Alanine Aminotransferase 29 U/L (12-78); Albumin Level 4.3 g/dl (3.5-5.0); Alkaline Phosphatase 75 U/L (38-126); Aspartate Amino Transferase 28 U/L (14-36); Bilirubin,Direct 0.2 mg/dl (0.0-0.4); Bilirubin,Indirect 0.5 mg/dL (0.0-0.9); Bilirubin,Total 0.7 mg/dl (0.2-1.3); Bilirubin,Unconjugated 0.6 mg/dL (0.0-1.1); Calcium 9.1 mg/dl (8.4-10.2); Carbon Dioxide 24 mmol/L (22.0-30.0); Cholesterol 174 mg/dl (140-200); Glucose 89 mg/dl (74-100); HDL Cholesterol 35 mg/dl (40-60); Total Protein,Serum 7.3 g/dl (6.3-8.2); Triglycerides 269 mg/dl (30-150); VLDL Cholesterol 54 mg/dL (0-40)
[2024-01-22 12:05] LABS: Direct LDL Cholesterol 95.31 mg/dL (100-129)
[2024-01-22 12:10] LABS: Free T4 (Free Thyroxine) 1.58 ng/dl (0.78-2.19)
[2024-01-22 12:26] LABS: Thyroid Stimulating Hormone 3.31 uIU/mL (0.465-4.68)
== END 2024-01-22 23:59 | disposition home or self-care (01) ==
LOC: LAB 10:20
PROVIDERS: PCP Physician Assistant; Visit Provider Physician Assistant
DX: R06.00 Dyspnea, unspecified (principal); R73.03 Prediabetes; R94.31 Abnormal electrocardiogram [ECG] [EKG]; E78.2 Mixed hyperlipidemia; G47.33 Obstructive sleep apnea (adult) (pediatric); R60.0 Localized edema; E78.1 Pure hyperglyceridemia; R06.02 Shortness of breath; I11.0 Hypertensive heart disease with heart failure
CPT/HCPCS: 36415; 80048; 80061; 80076; 84439; 84443; 85025

== ENCOUNTER 2024-03-17 10:27 | Outpatient (POV) | payer BC, SELFPAY | END 2024-03-17 23:59 | disposition home or self-care (01) | LOC: SC 10:27 | PROVIDERS: PCP Physician Assistant; Visit Provider Dermatology | DX: Z00.00 Encounter for general adult medical examination without abnormal findings (principal) ==

== ENCOUNTER 2024-05-11 14:19 | Outpatient (POV) | payer BC, SELFPAY ==
[2024-05-11 15:15] VITALS: BP 100/64; PULSE 60; RESP 18; O2SAT 97; BMI 36.3
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
== END 2024-05-11 23:59 | disposition home or self-care (01) ==
LOC: SC.PAIN 14:19
PROVIDERS: PCP Physician Assistant; Visit Provider Nurse Practitioner Family
DX: M50.30 Other cervical disc degeneration, unspecified cervical region (principal); M51.36 Other intervertebral disc degeneration, lumbar region; M46.1 Sacroiliitis, not elsewhere classified; Z73.89 Other problems related to life management difficulty
CPT/HCPCS: 99202; G0463

== ENCOUNTER 2024-05-15 12:06 | Outpatient (CLI) | payer BC, SELFPAY ==
--- NOTE | 2024-05-15 12:19 | XR_ITS ---
FINAL REPORT TECHNIQUE: 5 views CLINICAL HISTORY: LUMBAR BACK PAIN FINDINGS: There is no fracture present. There is no malalignment. There there is moderate diffuse degenerative disc change. IMPRESSION: No acute process. Reviewed, Interpreted and Dictated by Wilmer Coombs MD Transcribed by Rena Oscar Authenticated and [facility]
== END 2024-05-15 23:59 | disposition home or self-care (01) ==
LOC: RAD 12:08
PROVIDERS: PCP Physician Assistant; Visit Provider Physician Assistant
DX: M54.16 Radiculopathy, lumbar region (principal)
CPT/HCPCS: 72110

== ENCOUNTER 2024-05-19 18:16 | Outpatient (CLI) | payer BC, SELFPAY ==
--- NOTE | 2024-05-19 18:17 | MR_ITS ---
PROCEDURE INFORMATION: Exam: MR Lumbar Spine Without Contrast Exam date and time: 05/19/2024 6:46 PM Age: 43 years old Clinical indication: Low back pain; Patient HX: Lower back pain with pain going down legs; Additional info: Lbp TECHNIQUE: Imaging protocol: Magnetic resonance imaging of the lumbar spine without contrast. COMPARISON: MR LUMBAR SPINE WO CON 12/24/2022 7:57 AM FINDINGS: Bones/joints: No acute fracture. Grade 1 degenerative retrolisthesis of L3 on L4. Mild discogenic endplate changes at the L2 through L4 levels. Spinal cord: Conus terminates at the L1 level. L1-L2: Degenerative disc space narrowing, with posterior disc bulge, disc annular tear, with prominent left paracentral and foraminal component, causing left ventral thecal sac effacement (series 5, image 4). L2-L3: Mild broad-based posterior disc bulge, causing moderate thecal sac flattening; mild bilateral facet arthropathy; no central canal narrowing mild left neural foraminal narrowing. L3-L4: Moderate degenerative disc space narrowing with moderate broad-based posterior disc bulge, causing ventral thecal sac effacement; mild bilateral facet arthropathy; no central canal narrowing; mild bilateral neural foraminal narrowing. L4-L5: Mild broad-based posterior disc bulge, causing ventral thecal sac flattening; mild bilateral facet arthropathy; no central canal narrowing; no neural foraminal narrowing. L5-S1: Minimal posterior central disc bulge, causing ventral thecal sac indentation; no central canal or neural foraminal narrowing. Soft tissues: Unremarkable. IMPRESSION: 1. No acute fracture. 2. Multilevel lumbar spine spondylosis as described above, worst at the L1-L2 and L3-L4 levels, similar to comparison study.
== END 2024-05-19 23:59 | disposition home or self-care (01) ==
LOC: RAD 18:16
PROVIDERS: PCP Physician Assistant; Visit Provider Physician Assistant
DX: M54.16 Radiculopathy, lumbar region (principal); M51.26 Other intervertebral disc displacement, lumbar region; R29.898 Other symptoms and signs involving the musculoskeletal system
CPT/HCPCS: 72148

== ENCOUNTER 2024-06-08 10:47 | Outpatient (POV) | payer BC, SELFPAY ==
[2024-06-08 11:09] VITALS: BP 107/66; PULSE 69; RESP 16; O2SAT 98; BMI 35.4
--- NOTE | 2024-06-08 11:26 | A.OFFVIS_ITS ---
[facility] Disclaimer: The information contained in this section may have been updated after the patient was seen, as this information can be updated by other users. Medical History Intolerance to BiPAP/CPAP Migraines Thyroid disease (HFpEF) heart failure with preserved ejection fraction SHAYNA (obstructive sleep apnea) Essential hypertension HTN (hypertension) Surgical History History of cardiac cath Family History Other Anxiety Coronary artery disease Depression Diabetes Hypertension SHAYNA (obstructive sleep apnea) Obesity Stroke Social History (Updated 05/11/24 @ 15:16 by Erica Guthrie RN) Smoking Status: Never smoker alcohol intake: never substance use type: denies use current occupational status: other Travel in the last 8 weeks: None household members: spouse and children housing: house marital status: number of children: 2 PM Subjective & Objective Subjective Subjective:: Patient is a pleasant 43-year-old female who presents today for 1 month follow- up. Today she rates her pain a 3 out of 10 however states the pain will have to a 5 or more with increased activity. Patient denies any new injury or trauma since her last visit however does state that she did have her back go out where she was down for about a week. Patient states she could not do anything and that had to get her to help her babies due to the worsening pain. Patient at her last visit did have point tenderness along around her SIs however wanted more conservative treatment. Today she states that she would like to proceed forward with the injections. She states the pain is getting worse and is interfering with her ability to perform activities of daily living such as cooking and cleaning. Patient states that she never did hear anything updated on the compounded cream. Patient does also state that she has been having some chronic neck pain as well. Patient has tried and failed conservative therapy including continued at home stretching exercise for longer than 12 weeks. Her Mann has been reviewed and is appropriate. Review of Systems: General: No recent weight changes, no fever, no sleep disturbances Respiratory: No cough, no shortness of air, no recurring pulmonary infections Cardiovascular/peripheral vascular: No chest pain, no palpitations, no edema, no shortness of breath Gastrointestinal: No new onset incontinence, normal bowel movements reported Genitourinary: No new onset incontinence Musculoskeletal: Low back pain, bilateral hip Psychiatric: [Normal mood/affect] Neurological: [Denies weakness in extremities], [denies balance issues] Pain at rest (0-10 scale): 5 Objective Objective:: Physical Exam: General: Alert and oriented x3, no acute distress, pleasant and cooperative Lungs: Respirations even and unlabored, symmetrical chest expansion Eyes: PERRL Musculoskeletal: Flexion and extension of lumbar [spine] somewhat guarded secondary to pain, [antalgic gait noted] point tenderness along bilateral SIs with positive bilateral Kody's, Keely's, Gaenslen's, compression and distraction exam Neurological: Speech clear, no gross sensory deficit Has patient had previous pain injection?: No Conservative treatment options previously tried: Home exercise plan Length of treatment: Longer than 12-week Meds Home Medications and Allergies Home Medications ?Medication ?Instructions ?Recorded ?Confirmed ?Type cetirizine 10 mg tablet 10 mg PO DAILY 12/19/17 06/08/24 History fluticasone propionate 50 1 spray intranasal DAILY 12/19/17 06/08/24 History mcg/actuation nasal spray,suspension levothyroxine 25 mcg tablet 25 mcg PO DAILY 12/19/17 06/08/24 History ergocalciferol (vitamin D2) 62.5 2,500 unit PO DAILY 12/23/17 06/08/24 History mcg (2,500 unit) capsule ferrous gluconate 324 mg (37.5 mg 324 mg PO DAILY 12/31/18 06/08/24 History iron) tablet omeprazole 40 mg capsule,delayed 40 mg PO DAILY 06/22/19 06/08/24 History release atorvastatin 10 mg tablet 10 mg PO DAILY 02/27/22 06/08/24 History nabumetone 750 mg tablet 1,500 mg PO DAILY PRN Pain 05/15/23 06/08/24 History omega 2-fbt-jzw-fish oil 60 mg-90 1 cap PO DAILY 05/15/23 06/08/24 History mg-500 mg capsule (Fish Oil) Farxiga 10 mg tablet 10 mg PO DAILY #90 tabs 01/16/24 06/08/24 Rx (dapagliflozin propanediol) furosemide 40 mg tablet See Rx Instructions .Route 02/07/24 06/08/24 Rx .COMPLEX #120 tabs propranolol 120 mg capsule,24 See Rx Instructions .Route 03/16/24 06/08/24 Rx hr,extended release .COMPLEX #90 caps sacubitril 97 mg-valsartan 103 mg See Rx Instructions .Route 03/16/24 06/08/24 Rx tablet (Entresto) .COMPLEX #180 tabs metaxalone 800 mg tablet 800 mg PO TID PRN Pain 04/23/24 06/08/24 History spironolactone 100 mg tablet 50 mg PO DAILY 05/11/24 06/08/24 History New Prescriptions to Start Prescriptions: Allergies Allergy/AdvReac Type Severity Reaction Status Date / Time No Known Allergies Allergy Verified 05/11/24 13:43 Assessment and Plan *Assessment and plan (1) Bilateral sacroiliitis: Status: Acute Category: Medical Code(s): M46.1 - Sacroiliitis, not elsewhere classified Plan Patient is still experiencing significant pain in her low back and bilateral hips. Patient did have limited range of motion of her lumbar spine with point tenderness along her bilateral SIs and a positive bilateral Kody's, Keely's, Gaenslen's, compression and distraction exam. I did review over that I still believe she would benefit from bilateral SI injections. Risk and benefits were discussed with the patient and she would like to proceed forward with this plan of care. Patient has tried and failed conservative therapy including continued at home exercising and stretching for longer than 12 weeks. I will also reach out to the pharmacy regarding her compounded cream. Patient will be scheduled for bilateral SI injections under fluoroscopy. I did discuss with the patient that at her next visit we can also see if her neck pain. Patient has been instructed to contact the clinic with any concerns before the next appointment. Dr. Lovell has reviewed this note and agrees with this plan of care. This note was dictated using voice recognition software and make contain errors or omissions. All injections are used with Lidocaine or Bupivacaine and Depo Medrol.
== END 2024-06-08 23:59 | disposition home or self-care (01) ==
LOC: SC.PAIN 10:47
PROVIDERS: PCP Physician Assistant; Visit Provider Nurse Practitioner Family
DX: M46.1 Sacroiliitis, not elsewhere classified (principal); Z73.89 Other problems related to life management difficulty; Z79.899 Other long term (current) drug therapy
CPT/HCPCS: 99212; G0463

== ENCOUNTER 2024-06-08 14:18 | Outpatient (CLI) | payer BC, SELFPAY ==
[2024-06-08 15:39] LABS: Anion Gap 12.2 mEq/L (5-15); Blood Urea Nitrogen 17 mg/dl (7-17); Calcium 8.5 mg/dl (8.4-10.2); Carbon Dioxide 26 mmol/L (22.0-30.0); Chloride 105 mmol/L (98-107); Estimated Glomerular Filt Rate 68 ml/min (>60); GFR (African American) 82 ML/MIN (>60); Glucose 120 mg/dl (74-100); Potassium 3.2 mmoL/L (3.5-5.1); Sodium 140 mmol/L (136-145)
[2024-06-09 14:13] LABS: Free Kappa Lt Chains 21.1 mg/L (3.3-19.4); Free Lambda Lt Chains 14.6 mg/L (5.7-26.3)
[2024-06-09 15:12] LABS: Albumin 3.9 g/dL (2.9-4.4); Alpha-1-Globulin 0.2 g/dL (0.0-0.4); Alpha-2-Globulin 0.8 g/dL (0.4-1.0); Gamma Globulin 1.1 g/dL (0.4-1.8); Immunoglobulin A, Qn 406 mg/dL (87-352); Immunoglobulin G, Qn 1060 mg/dL (586-1602); Immunoglobulin M, Qn 141 mg/dL (26-217); Protein, Total 7.4 g/dL (6.0-8.5)
[2024-07-14 15:39] LABS: PDF SCANNED IMAGE
== END 2024-06-08 23:59 | disposition home or self-care (01) ==
LOC: LAB 14:19
PROVIDERS: PCP Physician Assistant; Visit Provider Internal Medicine
DX: I50.30 Unspecified diastolic (congestive) heart failure (principal); R94.31 Abnormal electrocardiogram [ECG] [EKG]; M50.30 Other cervical disc degeneration, unspecified cervical region; E78.2 Mixed hyperlipidemia; R06.02 Shortness of breath; G47.33 Obstructive sleep apnea (adult) (pediatric); I10 Essential (primary) hypertension; R73.03 Prediabetes; R60.0 Localized edema; I51.89 Other ill-defined heart diseases; E78.1 Pure hyperglyceridemia
CPT/HCPCS: 80048; 82784; 83883; 84155; 84165; 86334

== ENCOUNTER 2024-06-10 11:19 | Outpatient (CLI) | payer BC, SELFPAY ==
[2024-06-12 15:12] LABS: Albumin, U 33.2 % (.); Alpha-2-Globulin, U 12.3 % (.); Beta Globulin, U 34.2 % (.); Gamma Globulin, U 15.4 % (.); M-Spike, % Comment: % (Not Observed); Prot,24hr calculated 162 mg/24 hr (30-150)
[2024-06-12 15:12] LABS: Albumin, U 29.8 % (.); Alpha-1-Globulin, U 2.7 % (.); Alpha-2-Globulin, U 18.5 % (.); Beta Globulin, U 29.1 % (.); Gamma Globulin, U 19.8 % (.); M-Spike, % Not Observed % (Not Observed); Protein,Total,Urine 11.1 mg/dL (Not Estab.)
== END 2024-06-10 23:59 | disposition home or self-care (01) ==
LOC: LAB.DROPOF 11:20
PROVIDERS: PCP Physician Assistant; Visit Provider Internal Medicine
DX: I50.30 Unspecified diastolic (congestive) heart failure (principal); R94.31 Abnormal electrocardiogram [ECG] [EKG]; M51.360 Other intervertebral disc degeneration, lumbar region with discogenic back pain only; M50.30 Other cervical disc degeneration, unspecified cervical region; E78.2 Mixed hyperlipidemia; R06.02 Shortness of breath; G47.33 Obstructive sleep apnea (adult) (pediatric); I10 Essential (primary) hypertension; R73.03 Prediabetes
CPT/HCPCS: 84156; 84166; 86335

== ENCOUNTER 2024-06-25 10:46 | Outpatient (CLI) | payer BC, SELFPAY ==
--- NOTE | 2024-06-25 | XR_ITS ---
FINAL REPORT CLINICAL HISTORY: .pain COMPARISON: None FINDINGS: CERVICAL SPINE: AP, lateral, oblique and odontoid views of the cervical spine were obtained. There is no prior exam for comparison. There is no acute fracture. There is straightening of the normal curvature of the cervical spine, and mild kyphosis at the C6 level. Mild degenerative change is present with several osteophytes. No significant neuroforaminal narrowing is identified. Vertebral body height is preserved. The precervical soft tissues are normal. IMPRESSION: Mild degenerative change is present without acute bony abnormality. Authenticated and [facility]
== END 2024-06-25 23:59 | disposition home or self-care (01) ==
PROVIDERS: PCP Physician Assistant; Visit Provider Physician Assistant
DX: M54.2 Cervicalgia (principal)
CPT/HCPCS: 72050

== ENCOUNTER 2024-06-29 07:41 | Outpatient (CLI) | payer BC, SELFPAY ==
--- NOTE | 2024-06-29 07:42 | NM_ITS ---
APPROVED REPORT Birth Attendant: Procedure: 99mTc-PYP Cardiac Amyloidosis Imaging Clinical Indication: Heart failure, increased LV wall thickness Protocol: The patient received 25.5 mCi 99mTc-PYP intravenously. Planar and SPECT imaging was performed approximately 3 hours post injection. Planar images included anterior, left lateral and LUANN-45 projections. Findings: Visual interpretation: Planar and SPECT images were reviewed The overall quality of the study was good. Semi quantitative SPECT findings showed a grade 0. Impression: 1. Overall, the quality of the study was good. 2. Semi quantitative SPECT findings showed grade 0. 3. Overall interpretation of the findings is not suggestive of ATTR amyloidosis. This study and report were reviewed and signed by Hussein Myers MD (stave inspector). Conclusion Electronically signed by : Prceious Myers MD 06/29/2024 23:44:39
[2024-06-29] MEDS: SODIUM CHLORIDE 0.9% 10ML SYR (RAD ONLY) 10 ML IV (09:36)
[2024-06-29] MEDS: PYROPHOSPHATE CARDIAC (PYP);1 DOSE VIAL IV (09:37)
== END 2024-06-29 23:59 | disposition home or self-care (01) ==
LOC: RAD 07:42
PROVIDERS: PCP Physician Assistant; Visit Provider Internal Medicine
DX: R94.30 Abnormal result of cardiovascular function study, unspecified (principal); I50.30 Unspecified diastolic (congestive) heart failure; R94.31 Abnormal electrocardiogram [ECG] [EKG]
CPT/HCPCS: 78803

== ENCOUNTER 2024-07-02 08:32 | Outpatient (POV) | payer BC, SELFPAY ==
[2024-07-02 09:01] VITALS: BP 125/69; PULSE 71; RESP 16; O2SAT 96; BMI 35.9
--- NOTE | 2024-07-02 09:13 | A.OFFVIS_ITS ---
[facility] Disclaimer: The information contained in this section may have been updated after the patient was seen, as this information can be updated by other users. Medical History (Updated 06/08/24 @ 14:01 by Felisa Davis RN) Abnormal electrocardiogram [ECG] [EKG] Intolerance to BiPAP/CPAP Migraines Thyroid disease (HFpEF) heart failure with preserved ejection fraction SHAYNA (obstructive sleep apnea) Essential hypertension HTN (hypertension) Surgical History History of cardiac cath Family History Other Anxiety Coronary artery disease Depression Diabetes Hypertension SHAYNA (obstructive sleep apnea) Obesity Stroke Social History Smoking Status: Never smoker alcohol intake: never substance use type: denies use current occupational status: other Travel in the last 8 weeks: None household members: spouse and children housing: house marital status: number of children: 2 PM Subjective & Objective Subjective Subjective:: Patient is a pleasant 43-year-old female who presents today for insurance denial. She does continue to states she is still having more severe pain in and around her low back and bilateral hips. She does radiate that the pain goes to at least a 5 or more out of 10. She states increased activity aggravates it and things like prolonged positioning make it worse. She has tried oral medications, heat and ice, topicals, continued at home stretching exercise for longer than 12 weeks with no additional improvement. Patient has been counseled that she would benefit from SI injections and she does state today that she still would like to try and get these done. She states that her denial reason stated that there could not be more than 2 mL of solution injected into the joint space. Patient is prescribed compounded cream. Her Mann has been reviewed and is appropriate. Review of Systems: General: No recent weight changes, no fever, no sleep disturbances Respiratory: No cough, no shortness of air, no recurring pulmonary infections Cardiovascular/peripheral vascular: No chest pain, no palpitations, no edema, no shortness of breath Gastrointestinal: No new onset incontinence, normal bowel movements reported Genitourinary: No new onset incontinence Musculoskeletal: Low back pain, bilateral hip pain Psychiatric: [Normal mood/affect] Neurological: [Denies weakness in extremities], [denies balance issues] Pain at rest (0-10 scale): 5 Objective Objective:: Physical Exam: General: Alert and oriented x3, no acute distress, pleasant and cooperative Lungs: Respirations even and unlabored, symmetrical chest expansion Eyes: PERRL Musculoskeletal: Flexion and extension of lumbar [spine] somewhat guarded secondary to pain, [antalgic gait noted] point tenderness along bilateral SIs with positive bilateral Kody's, Keely's, Gaenslen's, compression and distraction exam Neurological: Speech clear, no gross sensory deficit Has patient had previous pain injection?: No Conservative treatment options previously tried: Home exercise plan Length of treatment: Longer than 12 weeks Meds Home Medications and Allergies Home Medications ?Medication ?Instructions ?Recorded ?Confirmed ?Type cetirizine 10 mg tablet 10 mg PO DAILY 12/19/17 07/02/24 History fluticasone propionate 50 1 spray intranasal DAILY 12/19/17 07/02/24 History mcg/actuation nasal spray,suspension levothyroxine 25 mcg tablet 25 mcg PO DAILY 12/19/17 07/02/24 History ergocalciferol (vitamin D2) 62.5 2,500 unit PO DAILY 12/23/17 07/02/24 History mcg (2,500 unit) capsule ferrous gluconate 324 mg (37.5 mg 324 mg PO DAILY 12/31/18 07/02/24 History iron) tablet omeprazole 40 mg capsule,delayed 40 mg PO DAILY 06/22/19 07/02/24 History release atorvastatin 10 mg tablet 10 mg PO DAILY 02/27/22 07/02/24 History nabumetone 750 mg tablet 1,500 mg PO DAILY PRN Pain 05/15/23 07/02/24 History omega 5-nev-uxa-fish oil 60 mg-90 1 cap PO DAILY 05/15/23 07/02/24 History mg-500 mg capsule (Fish Oil) Farxiga 10 mg tablet 10 mg PO DAILY #90 tabs 01/16/24 07/02/24 Rx (dapagliflozin propanediol) propranolol 120 mg capsule,24 See Rx Instructions .Route 03/16/24 07/02/24 Rx hr,extended release .COMPLEX #90 caps sacubitril 97 mg-valsartan 103 mg See Rx Instructions .Route 03/16/24 07/02/24 Rx tablet (Entresto) .COMPLEX #180 tabs metaxalone 800 mg tablet 800 mg PO TID PRN Pain 04/23/24 07/02/24 History spironolactone 100 mg tablet 50 mg PO DAILY 05/11/24 07/02/24 History furosemide 40 mg tablet See Rx Instructions .Route 06/09/24 07/02/24 Rx .COMPLEX #120 tabs New Prescriptions to Start Prescriptions: Allergies Allergy/AdvReac Type Severity Reaction Status Date / Time No Known Allergies Allergy Verified 06/08/24 13:39 Assessment and Plan *Assessment and plan (1) Bilateral sacroiliitis: Status: Acute Category: Medical Code(s): M46.1 - Sacroiliitis, not elsewhere classified Plan Patient continues to experience significant pain in and around her low back and hips and denies any pain or symptoms going down into her lower extremities. Patient did have a 10 point tenderness at her bilateral SIs and a positive bilateral Kody's, Keely's, Gaenslen's, compression and distraction exam. Patient has tried and failed conservative therapy including 12 weeks of at home stretching exercise. Patient was reviewed over the risk and benefits of the SI injection and she still would like to proceed forward with this plan of care. I did discuss with the patient that we do inject 1 mL of solution of 40 mg Depo- Medrol bilaterally and that the only other solution we are using is for local to anesthetize around the skin for the injection itself. I did prison classification counselor the patient that we will resubmit with this information and try and get the approval and contact her once we have gotten a response. Patient agrees with this plan of care. Patient will be resubmitted for bilateral SI injections under fluoroscopy. This pain has been going on for longer than 3 months and remained unchanged with conservative interventions. Patient has been instructed to contact the clinic with any concerns before the next appointment. Dr. Lovell has reviewed this note and agrees with this plan of care. This note was dictated using voice recognition software and make contain errors or omissions. All injections are used with Lidocaine or Bupivacaine and Depo Medrol.
== END 2024-07-02 23:59 | disposition home or self-care (01) ==
LOC: SC.PAIN 08:33
PROVIDERS: PCP Physician Assistant; Visit Provider Nurse Practitioner Family
DX: M46.1 Sacroiliitis, not elsewhere classified (principal)
CPT/HCPCS: 99212; G0463

== ENCOUNTER 2024-07-03 10:14 | Outpatient (CLI) | payer BC, SELFPAY ==
--- NOTE | 2024-07-03 10:14 | MR_ITS ---
APPROVED REPORT Records Management Clerk: CLINICAL INDICATION HFpEF evaluation TECHNIQUE Image Acquisition: Cardiac magnetic resonance (CMR) was performed on Siemens Espree MRI 1.5T scanner. Software platform sequences were performed using the Siemens [employer] MR B19 platform. A set of three-plane, low-resolution, large eiojt-cz-rrok localizers were initially acquired. Then axial, coronal, sagittal TrueFISP, as well as axial HASTE images, were obtained. These were followed by gated TrueFISP breathold cinematic sequences obtained in the short axis with 8 mm slices and 2 mm gaps, 2-chamber (vertical long axis), 3-chamber, 4-chamber (horizontal long axis). A bolus of contrast was injected intravenously with first-pass sequences obtained in the short axis and four-chamber planes. After approximately 10 minutes, a TI lvn home health sequence was performed to determine the optimal TI time. Using the optimized TI time, delayed contrast enhancement segmented inversion???recovery TurboFLASH sequences were obtained in the short axis, 2-chamber, 3-chamber, and 4-chamber projections. 2D-velocity phase mapping was performed. Functional parameters were calculated by offline analysis on an independent workstation ([employer], [employer]). Contrast: ProHance??? (Gadoteridol) FINDINGS MORPHOLOGY AND FUNCTION Left ventricle: The left ventricle is normal in size. The indexed left ventricular end-diastolic volume (LVEDVi) is 56 ml/m2 (reference range 57-105 ml/m2 in males, 56-96 ml/m2 in females). Normal left ventricular systolic function is present. There is normal left ventricular wall thickness. There are no regional wall motion abnormalities noted. LVEF is calculated at 67.2% (reference range 57-77%). Right ventricle: The right ventricle is normal in size. The indexed right ventricular end-diastolic volume (RVEDVi) is 57 ml/m2 (reference range 61-121 ml/m2 in males, 48-112 ml/m2 in females). Normal right ventricular systolic function is present. RVEF is calculated at 52.0% (reference range 52-72% in males, 51-71% in females). Atria: The left atrium is normal in size. The maximum indexed left atrial volume is 25 ml/m2 (reference range 26-52 ml/m2 in males, 27-53 ml/m2 in females). The right atrium is normal in size. The maximum indexed right atrial volume is 20 ml/m2 (reference range 18-90 ml/m2). Aorta: The diameter of the aortic annulus is normal, measuring 22 mm (coronal view reference range 21-30 mm in males, 19-27 mm in females). The diameter of the aortic sinus is normal, measuring 31 mm (coronal view reference range 25-42 mm in males, 24-36 mm in females). The diameter of the sinotubular junction is normal, measuring 27 mm (coronal view reference range 18-32 mm in males, 18-28 mm in females). The diameters of the ascending and descending thoracic aorta are normal. Main pulmonary artery: The main pulmonary artery diameter is normal. Pericardium: The pericardial thickness is normal. The pericardial thickness measures 1.2 mm (normal < 4.0 mm). There is no pericardial effusion. VALVES The valvular morphologies in the visualized sequences appear normal. There is no significant valvular stenosis or regurgitation of the mitral, aortic, tricuspid, or pulmonic valve noted visually. Systolic anterior motion of the mitral valve is not visualized. Ratio of pulmonary to systemic flow, Qp:Qs ratio = 1.3 (normal < or = 1.2, hemodynamically significant shunt > 1.5), demonstrating no evidence of hemodynamically significant shunt. TISSUE CHARACTERIZATION Resting Perfusion: Normal myocardial blood flow at rest. No evidence of resting hypoperfusion. Myocardial Fibrosis and/or edema: Normal gadolinium kinetics are present. No evidence of late gadolinium enhancement is noted, consistent with absence of myocardial scarring, infarction, or necrosis. T2-weighted imaging demonstrates no evidence of myocardial edema or inflammation. OTHER No other significant findings are noted. However, this exam is focused on the cardiac structure and function. IMPRESSION Normal LV size with normal LV systolic function. LVEDVi= 56 ml/m2 and LVEF= 67.2%. Normal RV size with normal RV systolic function. RVEDVi= 57 ml/m2 and RVEF= 52.0%. No atrial enlargement. No CMR evidence of myocardial scarring, infarction, or necrosis. No evidence of myocardial edema or inflammation. Perfusion analysis demonstrates normal blood flow at rest with no evidence of resting hypoperfusion. Ratio of pulmonary to systemic flow, Qp:Qs ratio = 1.3 (normal < or = 1.2, hemodynamically significant shunt > 1.5), demonstrating no evidence of hemodynamically significant shunt. Overall, this CMR demonstrates normal biventricular size and systolic function. No evidence of infiltrative cardiomyopathy. No evidence of scarring or prior infarct. COMPARISON None CRITICAL RESULT None COMMUNICATION The above results were communicated with the patient at the time of her routine outpatient visit to cardiology clinic. The findings of this cardiac MR were reviewed, reported, and signed by Hussein Myers MD ([employer] Architect). Conclusion Electronically signed by : Precious Myers MD 07/08/2024 23:57:42
[2024-07-03] MEDS: SODIUM CHLORIDE 0.9% 50ML BAG 25 ML IV (13:28)
[2024-07-03] MEDS: GADOTERIDOL INJ 20ML SYRINGE 20 ML IV (13:28)
[2024-07-03] MEDS: SODIUM CHLORIDE 0.9% 10ML SYR (RAD ONLY) 10 ML IV (13:28)
== END 2024-07-03 23:59 | disposition home or self-care (01) ==
LOC: RAD 10:14
PROVIDERS: PCP Physician Assistant; Visit Provider Internal Medicine
DX: I50.30 Unspecified diastolic (congestive) heart failure (principal); R94.31 Abnormal electrocardiogram [ECG] [EKG]; R73.03 Prediabetes; R06.02 Shortness of breath; R07.89 Other chest pain
CPT/HCPCS: 75561; A9576

== ENCOUNTER 2024-07-23 08:15 | Outpatient (CLI) | payer BC, SELFPAY ==
--- NOTE | 2024-07-23 08:18 | MR_ITS ---
FINAL REPORT CLINICAL HISTORY: NECK PAIN WITH PAIN DOWN ARMS COMPARISON: 12/24/2022 FINDINGS: Multiplanar MR imaging of the cervical spine was performed without contrast. On the sagittal T2-weighted images, disc degeneration is seen throughout. There is no evidence of fracture. The vertebral alignment is normal. The cervical spinal cord has an unremarkable appearance without evidence of mass, edema or syrinx. No significant canal stenosis is identified. The cervicomedullary junction is normal. C2-3: Small right paracentral disc protrusion is present. There is no significant canal stenosis or neural foraminal narrowing. C3-4: An annular disc bulge is present. There is a small central disc protrusion. There is no significant canal stenosis or neural foraminal narrowing. C4-5: An annular disc bulge is present. There is no significant canal stenosis or neural foraminal narrowing. C5-6: Disc osteophyte complex is present with mild left neuroforaminal narrowing. C6-7: Disc osteophyte complex is present with moderate bilateral neuroforaminal narrowing. C7-T1: There is no significant canal stenosis or neuroforaminal narrowing. IMPRESSION: Small right paracentral disc protrusion at C2-3. Small central disc protrusion at C3-4. Multilevel degenerative disc disease and spondylosis, similar to previous. Reviewed, Interpreted and Dictated by Levi Mcmahan III, MD Transcribed by Devi Hoang Authenticated and . [facility]
== END 2024-07-23 23:59 | disposition home or self-care (01) ==
LOC: RAD 08:16
PROVIDERS: PCP Physician Assistant; Visit Provider Physician Assistant
DX: M54.12 Radiculopathy, cervical region (principal)
CPT/HCPCS: 72141

== ENCOUNTER 2024-07-28 13:32 | Day surgery (SDC) | payer BC, SELFPAY ==
[2024-07-28 13:40] VITALS: BP 110/70; PULSE 71; RESP 16; TEMP 36.4; O2SAT 94; BMI 35.6
--- NOTE | 2024-07-28 14:04 | P.PCN_ITS ---
Procedure Date: 07/28/24 Time: 14:00 Anesthesiologist:: Justin Garcia CRNA Complications:: None Pre-procedure Diagnosis:: Bilateral sacroiliitis Post-procedure Diagnosis:: Same. Indications for Procedure:: Patient is a very pleasant 44-year-old female who comes our clinic today for bilateral sacroiliac joint injections of cortisone and local anesthetic. Patient describes low lumbar back pain off the midline bilaterally as constant, dull, aching. She also reports bilateral posterior hip pain. Difficulty transitioning from sitting to standing. Difficulty with ambulation. Difficulty with sitting for any length of time. She rates her pain 8/10. Procedure Details:: Procedure: Bilateral sacroiliac joint injections under fluoroscopy Informed consent was obtained and the risks and benefits of the procedure were explained to the patient.~ The patient was taken to the procedure room and noninvasive monitors were placed including a noninvasive blood pressure cuff and pulse oximeter.~ The patient was placed prone on the procedure table. Both hips were cleansed using Betadine as a cleansing solution. C-arm fluoroscopy was used to view the right sacroiliac joint.~ The skin and subcutaneous tissues were anesthetized using lidocaine 1.5% and a 25-gauge needle.~ After this, a 22-gauge spinal needle was inserted under fluoroscopic guidance into the inferior aspect of the right sacroiliac joint.~ Omnipaque dye was injected and good spread was seen throughout the joint.~ After this, approximately 5 mL of bupivacaine, 0.25% and Depo-Medrol, 40 mg was incrementally injected into the right sacroiliac joint. We then moved to the left sacroiliac joint.~ The skin and subcutaneous tissues were anesthetized using lidocaine 1.5% and a 25-gauge needle.~ After this, a 22- gauge spinal needle was inserted under fluoroscopic guidance into the inferior aspect of the left sacroiliac joint.~ Omnipaque dye was injected and good spread was seen throughout the joint. After this, approximately 5 mL of bupivacaine, 0.25% and Depo-Medrol, 40 mg was incrementally injected into the left sacroiliac joint.~ The patient tolerated the procedure well with no complications. The patient was observed in the Pain Clinic and then was discharged home neurologically intact. Plan and Disposition:: Patient was discharged without incident.
[2024-07-28 14:16] VITALS: BP 111/62; PULSE 80; RESP 16; TEMP 36.4; O2SAT 95
[2024-07-28] MEDS: BUPIVACAINE 0.25% 10ML INJ 25 MG IJ (14:26)
[2024-07-28] MEDS: methylPREDNISolone ACETATE 80MG/ML VIAL 80 MG (14:27)
[2024-07-28] MEDS: LIDOCAINE 1% 5ML PF VIAL 5 ML (14:27)
[2024-07-28 14:28] VITALS: BP 140/92; PULSE 72; RESP 18; O2SAT 97
[2024-07-28 14:30] VITALS: BP 140/92; PULSE 72; RESP 18; O2SAT 98
== END 2024-07-28 14:16 | disposition home or self-care (01) ==
PROVIDERS: PCP Physician Assistant; Visit Provider Nurse Anesthetist, Certified Registered
DX: M46.1 Sacroiliitis, not elsewhere classified (principal)
CPT/HCPCS: 27096; G0260; J1010

== ENCOUNTER 2025-01-19 08:27 | Outpatient (CLI) | payer BC, SELFPAY ==
--- OUTSIDE RECORDS SUMMARY | 2024-09-25 08:46 | XMS_ITS | Continuity of Care Document ---
Author Organization [facility]. If a dditional information is needed, contact Health Information Management at [phone] Address [address] [place] [address] Phone Care Team Providers Care Airplane Pilot Helper Name Role Phone Unavailable Unavailable Unavailable Unavailable Unavailable Unavailable Procedures Lumbar Spine Minimum 4 ViewResult:[place] [address] [address] [address] Diagnostic Imaging ReportPatient Name: VERN RAMOS Acct: [id number]: 1980 Age: 44 Sex: F MR#: [id number] Date/Time: 09/25/24 Admit Date/Time:Patient Status: REG CLI Ordering Physician: Paola EscaleraPatient Location: [facility] Attending Physician: Paola EscaleraAccession Number(s): [id number](s): Radiology XR Lumbar Spine minimum 4 ViewCPT Code(s): [id number] INDICATION: Pain TECHNIQUE: XR Scoliosis Supine And Erect, XR Lumbar Spine minimum 4 View COMPARISON: None. FINDINGS: Reversal of the lordotic curvature of the cervical spine centered at C5. Disc space narrowing andosteophyte formation most notable at C5-C6 and C6-C7. No prevertebral soft tissue swelling. Nosignificant vertebral body height loss. Degenerative changes of the thoracic spine most notable in the mid thoracic spine with disc spacenarrowing and osteophyte formation. Slight dextrocurvature centered at T9. No significant vertebralbody height loss. Degenerative change throughout the lumbar spine with disc space narrowing and osteophyte formationmost notable at L3-L4 and L5-S1. Slight retrolisthesis of L3 on L4. Alignment is grossly maintainedin flexion and extension. Facet hypertrophy most notable in the mid and lower lumbar spine. Nosignificant vertebral body height loss. RAD/XR Lumbar Spine minimum 4 ViewIMPRESSION:Degenerative change throughout the spine as above with slight retrolisthesis of L3 on L4 and slightdextrocurvature centered at T9.CRITICAL RESULT:No.COMMUNICATION:Per this written report.Drafted by Kingsley Jimenes on 09/25/2024 1:28 PMFinal report signed by Kingsley Jimenes on 09/25/2024 1:31 PMPatient Name: VERN RAMOS Acct: [id number] Unit: [id number] Page 1<Electronically signed by iKngsley Jimenes MD in [place]>09/25/24 1331 Thank you for choosing [facility] Dictated By: VANESSA Lomaxictated Date/Time: 09/25/24 1331Transcribed By: Kingsley Jimenes MDTranscribed Date/Time: 09/25/24 1331Technologist: Mleissa Del Rio To: Report ID: [id number] -End of Report-Patient Name: VERN RAMOS Acct: [id number] Unit: [id number] Page 2 Date:25-Sep-2024 Status:Completed Scoliosis w Supine and Erect[place] [address] Diagnostic Imaging ReportPatient Name: VERN RAMOS Acct: [id number]: 1980 Age: 44 Sex: F MR#: [id number] Date/Time: 09/25/24 Admit Date/Time:Patient Status: REG CLI Ordering Physician: Paola EscaleraPatient [facility] Attending Physician: Paola EscaleraAccession Number(s): [id number](s): Radiology XR Scoliosis Supine And ErectCPT Code(s): [id number] INDICATION: Pain TECHNIQUE: XR Scoliosis Supine And Erect, XR Lumbar Spine minimum 4 View COMPARISON: None. FINDINGS: Reversal of the lordotic curvature of the cervical spine centered at C5. Disc space narrowing andosteophyte formation most notable at C5-C6 and C6-C7. No prevertebral soft tissue swelling. Nosignificant vertebral body height loss. Degenerative changes of the thoracic spine most notable in the mid thoracic spine with disc spacenarrowing and osteophyte formation. Slight dextrocurvature centered at T9. No significant vertebralbody height loss. Degenerative change throughout the lumbar spine with disc space narrowing and osteophyte formationmost notable at L3-L4 and L5-S1. Slight retrolisthesis of L3 on L4. Alignment is grossly maintainedin flexion and extension. Facet hypertrophy most notable in the mid and lower lumbar spine. Nosignificant vertebral body height loss. RAD/XR Scoliosis Supine And ErectIMPRESSION:Degenerative change throughout the spine as above with slight retrolisthesis of L3 on L4 and slightdextrocurvature centered at T9.CRITICAL RESULT:No.COMMUNICATION:Per this written report.Drafted by Kingsley Jimenes on 09/25/2024 1:28 PMFinal report signed by Kingsley Jimenes on 09/25/2024 1:31 PMPatient Name: VERN RAMOS Acct: [id number] Unit: [id number] Page 1<Electronically signed by Kingsley Jimenes MD in [place]>09/25/24 1331 Thank you for choosing [facility] Dictated By: VANESSA Lomaxictated Date/Time: 09/25/24 133Transcribed By: Kingsley Jimenes MDTranscribed Date/Time: 09/25/24 1331Technologist: Melissa Del Rio To: Report ID: [id number] -End of Report-Patient Name: VERN RAMOS Acct: [id number] Unit: [id number] Page 2 Date:25-Sep-2024 Status:Completed Encounters pre-admission Encounter Reason:M50.20,M54.50,G89.29,M51.362,M48.062,R26.9,Z74.1 19-Oct-2024 15:04 Sai FRAZIER (Attending) [facility] Encounter Reason:M54.50 Encounter Diagnosis:SPONDYLOLISTHESIS, LUMBAR REGION,OTHER SPECIFIED DEFORMING DORSOPATHIES, THORACIC REGION,Other intervertebral disc degeneration, lumbar region with discogenic back pain and lower extremity pain,OTHER CERVICAL DISC DISPLACEMENT, UNSP CERVICAL REGION,SPINAL STENOSIS, LUMBAR REGION WITH NEUROGENIC CLAUDICATION,OTHER CHRONIC PAIN,SPONDYLOSIS W/O MYELOPATHY OR RADICULOPATHY, LUMBAR REGION 25-Sep-2024 12:27Us4-Aer-3 025 12:46 Sai FRAZIER (Attending) [facility] Discharge Disposition: Discharged to home or self care (routine discharge)
--- NOTE | 2025-01-19 09:00 | CA_ITS ---
FINAL REPORT TECHNIQUE: Baird scale, color and spectral doppler images of the bilateral carotid arteries were obtained. CLINICAL HISTORY: SOB, HTN, HLD, PVD, dizziness, neck pain COMPARISON: None FINDINGS: Peak systolic velocity in the right internal carotid artery is 114 cm/sec. The internal carotid to common carotid artery ratio is 1.9. There is no significant carotid artery stenosis and no significant plaque formation. The right vertebral artery is normal in direction. Peak systolic velocity in the left internal carotid artery is 116 cm/sec. The internal carotid to common carotid artery ratio is 1.24. There is no significant carotid artery stenosis and no significant plaque formation. The left vertebral artery is normal in direction. IMPRESSION: No ultrasound evidence of hemodynamically significant carotid artery stenosis. Normal peak systolic velocities and normal internal to common carotid artery ratios bilaterally. Reviewed, Interpreted and Dictated by Luci Tom MD Transcribed by Meliza Poe Authenticated and [facility]
--- NOTE | 2025-01-19 09:45 | CA_ITS ---
FINAL REPORT TECHNIQUE: Arterial duplex Doppler evaluation of the lower extremities with spectral analysis. CLINICAL HISTORY: HTN, HLD, PVD, SOB, bilateral claudication COMPARISON: None FINDINGS: Right lower extremity, flow velocities (cm per second): Common femoral artery: 110 Proximal SFA: 118 Distal SFA: 60 to Popliteal: 62 Peroneal artery: 28 Posterior tibial artery: 48 Left lower extremity, flow velocities (cm per second): Common femoral artery: 114 Proximal SFA: 103 Distal SFA: 61 Popliteal: 73 Peroneal artery: 62 Posterior tibial artery: 40 IMPRESSION: Waveforms are noted to be biphasic and triphasic. No levels of stenosis or occlusion are identified. Reviewed, Interpreted and Dictated by Luci Tom MD Transcribed by Meliza Poe Authenticated and . [facility]
--- NOTE | 2025-01-19 10:15 | CA_ITS ---
FINAL REPORT CLINICAL HISTORY: SOB, HTN, HLD, PVD, right leg pain, bilateral claudication COMPARISON: None FINDINGS: DUPLEX VENOUS SONOGRAPHY OF THE BILATERAL LOWER EXTREMITIES Multiple transverse and longitudinal scans were performed of the femoropopliteal deep venous systems, with augmentation and compression maneuvers. HISTORY: Pain FINDINGS: Normal phasic flow was noted in the visualized deep venous systems. No intraluminal increased echogenicity is noted to suggest thrombus. There is normal compression and augmentation of the venous structures. No abnormal venous collaterals are seen. IMPRESSION: No evidence of deep venous thrombosis of the bilateral lower extremities. Reviewed, Interpreted and Dictated by Luci Tom MD Transcribed by Meliza Poe Authenticated and [facility]
== END 2025-01-19 23:59 | disposition home or self-care (01) ==
LOC: RT 08:28
PROVIDERS: PCP Physician Assistant; Visit Provider Internal Medicine
DX: I73.9 Peripheral vascular disease, unspecified (principal); I10 Essential (primary) hypertension; E78.5 Hyperlipidemia, unspecified; M54.2 Cervicalgia; R94.31 Abnormal electrocardiogram [ECG] [EKG]; R06.02 Shortness of breath; R42 Dizziness and giddiness
CPT/HCPCS: 93880; 93925; 93970